=== PATIENT | female | born 1995 | race Caucasian/White ===

== ENCOUNTER 2018-08-09 19:38 | Inpatient (IN) | payer OTHER ==
[~2018-08-09] VITALS: Ht 190.5 cm; Wt 136.1 kg
[~2018-08-09 19:38] MED LIST: CHLORPROMAZINE100 MG; CHLORPROMAZINE50 MG; CLONAZEPAM1 MG; METFORMIN HCL500 M1; PROZAC10 MG
[2018-08-09] MEDS ORDERED: DALMANE30 MG (20:28)
[2018-08-18] MEDS ORDERED: CEPHALEXIN500 M1 PO (09:36)
[2018-08-18] MEDS ORDERED: CIPRO500 MG PO (09:37)
== END 2018-08-18 12:53 | disposition home or self-care (01) | DRG 504 ==
LOC: ER 19:38 → MEDJ 08-10 08:26
PROVIDERS: Specialist; ADMIT Internal Medicine
PROC: 30233N1 Transfusion of Nonautologous Red Blood Cells into Peripheral Vein, Percutaneous Approach (ICD-10-PCS; 2018-08-10)
PROC: 0Y6P0Z0 Detachment at Right 1st Toe, Complete, Open Approach (ICD-10-PCS; principal; 2018-08-13 07:00)
DX: M86.171 Other acute osteomyelitis, right ankle and foot (principal); F84.0 Autistic disorder; I96 Gangrene, not elsewhere classified; E11.621 Type 2 diabetes mellitus with foot ulcer; M86.671 Other chronic osteomyelitis, right ankle and foot; L97.514 Non-pressure chronic ulcer of other part of right foot with necrosis of bone; E11.65 Type 2 diabetes mellitus with hyperglycemia; D50.0 Iron deficiency anemia secondary to blood loss (chronic); B95.4 Other streptococcus as the cause of diseases classified elsewhere; B95.61 Methicillin susceptible Staphylococcus aureus infection as the cause of diseases classified elsewhere; B96.5 Pseudomonas (aeruginosa) (mallei) (pseudomallei) as the cause of diseases classified elsewhere; D64.89 Other specified anemias; E66.01 Morbid (severe) obesity due to excess calories; I10 Essential (primary) hypertension; G31.84 Mild cognitive impairment of uncertain or unknown etiology; Z79.4 Long term (current) use of insulin

== ENCOUNTER 2018-09-15 11:44 | Emergency (ER) | payer OTHER ==
[~2018-09-15] VITALS: Ht 190.5 cm; Wt 181.4 kg
[~2018-09-15 11:44] MED LIST changes: +CEPHALEXIN500 M1 PO; +CIPRO500 MG PO; +DALMANE30 MG
[2018-09-15] MEDS ORDERED: CIPRO500 MG PO (15:19)
== END 2018-09-15 15:54 | disposition home or self-care (01) ==
LOC: ER 11:44
DX: E11.628 Type 2 diabetes mellitus with other skin complications (principal); L03.031 Cellulitis of right toe; T81.49XA Infection following a procedure, other surgical site, initial encounter; B95.7 Other staphylococcus as the cause of diseases classified elsewhere; Z48.02 Encounter for removal of sutures; Z89.411 Acquired absence of right great toe

== ENCOUNTER → 2018-09-30 | Emergency (ER) | payer OTHER ==
[~2018-09-30] VITALS: Ht 188 cm; Wt 204.1 kg
== END | disposition home or self-care (01) ==
LOC: ER 11:08
DX: Z48.02 Encounter for removal of sutures (principal); Z89.411 Acquired absence of right great toe

== ENCOUNTER 2019-03-01 22:01 | Inpatient (IN) | payer OTHER ==
[~2019-03-01] VITALS: Ht 190.5 cm; Wt 181.4 kg
[~2019-03-01 22:01] MED LIST changes: -PROZAC10 MG; +PROZAC10 MG PO
[2019-03-03] MEDS ORDERED: OLANZAPINE10 MG PO (08:02)
[2019-03-08] MEDS ORDERED: LOSARTAN POTASS50 MG PO (14:02)
[2019-03-08] MEDS ORDERED: METOPROLOL TART50 MG PO (14:03)
[2019-03-08] MEDS ORDERED: CLONAZEPAM1 MG PO (14:03)
[2019-03-08] MEDS ORDERED: Lantus 1000 UNITS/10 SUBCUTANEO (14:04)
[2019-03-08] MEDS ORDERED: HUMALOG100 UNIT/1 SUBCUTANEO (14:05)
== END 2019-03-08 14:20 | disposition home or self-care (01) | DRG 741 ==
LOC: ER 22:01 → SEC-K 03-02 07:56 → OB/GYN 03-02 07:56
PROVIDERS: ADMIT Obstetrics & Gynecology
PROC: 30233N1 Transfusion of Nonautologous Red Blood Cells into Peripheral Vein, Percutaneous Approach (ICD-10-PCS; 2019-03-02)
PROC: 8E0ZXY6 Isolation (ICD-10-PCS; 2019-03-02)
PROC: 0UDB8ZZ Extraction of Endometrium, Via Natural or Artificial Opening Endoscopic (ICD-10-PCS; 2019-03-05)
PROC: 0UH97HZ Insertion of Contraceptive Device into Uterus, Via Natural or Artificial Opening (ICD-10-PCS; 2019-03-05)
PROC: 0UB97ZZ Excision of Uterus, Via Natural or Artificial Opening (ICD-10-PCS; principal; 2019-03-05 10:45)
DX: C54.1 Malignant neoplasm of endometrium (principal); D25.0 Submucous leiomyoma of uterus; N83.292 Other ovarian cyst, left side; N72 Inflammatory disease of cervix uteri; D50.0 Iron deficiency anemia secondary to blood loss (chronic); E66.01 Morbid (severe) obesity due to excess calories; E11.65 Type 2 diabetes mellitus with hyperglycemia; Z30.433 Encounter for removal and reinsertion of intrauterine contraceptive device